=== PATIENT | female | born 1990 | race American Indian/Alaskan Native ===

== ENCOUNTER 2019-11-08 13:18 | Emergency (ER) | payer MEDICAID ==
[2019-11-08 13:25] VITALS: BP 117/75
--- NOTE | 2019-11-08 14:19 | Event Note ---
ED Screening Note ED Screening Note: Dara is currently 7 weeks . 6th . 3 live births 2 stillborn pregnancies Presents today with vomiting diarrhea and subsequent rectal bleeding This initial assessment/diagnostic orders/clinical plan/treatment(s) is/are subject to change based on patients health status, clinical progression and re- assessment by fellow clinical providers in the ED. Further treatment and workup at subsequent clinical providers discretion. Patient/guardian urged not to elope from the ED as their condition may be serious if not clinically assessed and managed. Initial orders include: labs US
[2019-11-08 14:50] LABS: Basophils # (Auto) 0.1 K/mm3 (0.0-0.1); Basophils % (Auto) 0.5 % (0.0-1.8); Hematocrit 34.7 % (30.3-42.9); Hemoglobin 11.4 gm/dl (10.1-14.3); Lymphocytes # (Auto) 1.6 K/mm3 (1.2-5.4); Lymphocytes % (Auto) 15.4 % (13.4-35.0); Mean Corpuscular HGB Conc 33 % (30-34); Mean Corpuscular Volume 76 fl (79-97); Monocytes # (Auto) 0.3 K/mm3 (0.0-0.8); Platelet Count 290 K/mm3 (140-440); Red Blood Count 4.58 M/mm3 (3.65-5.03); Red Cell Distribution Width 16.4 % (13.2-15.2)
[2019-11-08 15:08] LABS: BUN/Creatinine Ratio 15; Blood Urea Nitrogen 6 mg/dL (7-17); Calcium 9.6 mg/dL (8.4-10.2); Hemolysis Index 4
--- NOTE | 2019-11-08 16:45 | Ultrasound Report ---
ULTRASOUND OBSTETRIC INDICATION / CLINICAL INFORMATION: abdominal pain . Clinical Gestational Age (GA): 7 weeks 5 days TECHNIQUE: Transabdominal. Transvaginal COMPARISON: None available. FINDINGS: GESTATIONAL SAC: Well-defined oval shape and intrauterine in location. YOLK SAC: No significant abnormality. EMBRYO/FETUS: No significant abnormality. - [place]-Rump Length = 1.28 cm = 7 weeks, 4 day(s). - Heart Rate, beats per minute (if present) = 172 ADNEXA: No significant abnormality. Both ovaries appear unremarkable. FREE FLUID: None. ADDITIONAL FINDINGS: There is a large subchorionic hemorrhage noted to the left of the gestational sa c. Hemorrhage measures approximately 3.7 cm in greatest diameter. IMPRESSION: 1. Single, living intrauterine with estimated sonographic age of 7 weeks, 2 day(s). 2. Large subchorionic hemorrhage noted. Signer Name: Kacie Barahona MD Signed: 11/08/2019 4:40 PM Workstation Name: [id number]
--- NOTE | 2019-11-08 16:45 | Ultrasound Report ---
ULTRASOUND OBSTETRIC INDICATION / CLINICAL INFORMATION: abdominal pain . Clinical Gestational Age (GA): 7 weeks 5 days TECHNIQUE: Transabdominal. Transvaginal COMPARISON: None available. FINDINGS: GESTATIONAL SAC: Well-defined oval shape and intrauterine in location. YOLK SAC: No significant abnormality. EMBRYO/FETUS: No significant abnormality. - [place]-Rump Length = 1.28 cm = 7 weeks, 4 day(s). - Heart Rate, beats per minute (if present) = 172 ADNEXA: No significant abnormality. Both ovaries appear unremarkable. FREE FLUID: None. ADDITIONAL FINDINGS: There is a large subchorionic hemorrhage noted to the left of the gestational sa c. Hemorrhage measures approximately 3.7 cm in greatest diameter. IMPRESSION: 1. Single, living intrauterine with estimated sonographic age of 7 weeks, 2 day(s). 2. Large subchorionic hemorrhage noted. Signer Name: Kacie Barahona MD Signed: 11/08/2019 4:40 PM Workstation Name: [id number]
[2019-11-08] MEDS ORDERED: SODIUM CHLORIDE 0.9% 1000 ML 1,000 ML IV ONE (21:42)
[2019-11-08] MEDS ORDERED: ONDANSETRON 4 MG/2 ML INJ IV ONE (21:42)
[2019-11-08] MEDS ORDERED: ACETAMINOPHEN 325 MG TAB PO ONE (21:47)
--- NOTE | 2019-11-08 21:47 | Emergency Department Report ---
ED Abdominal Pain HPI - General Chief Complaint: GI Bleed Stated Complaint: 7WKS PREG/BLOOD IN STOOL/CRAMPS Time Seen by Provider: 11/08/19 21:29 Source: patient Mode of arrival: Ambulatory Limitations: No Limitations - History of Present Illness Initial Comments: 29-year-old -Swedish female that is 7 weeks presents to the emergency room for nausea vomiting abdominal pain and she reports she noted some blood in her stool. Patient is been compliant having these complaints for 2 days. Last menstrual period was September 15, 2019. Patient is 6 para 3 with 2 miscarriages. Patient has a past medical history of protein S defi ciency. Patient reports her pain is a 6 out of 10. Patient reports that she is not able to hold any food down. MD Complaint: abdominal pain Onset/Timin -: days(s) Location: suprapubic Radiation: none Migration to: no migration Severity scale (0 -10): 6 Quality: stabbing, aching Consistency: constant Improves With: nothing Worsens With: nothing Associated Symptoms: nausea, vomiting, hematochezia - Related Data LMP Date: 09/15/19 Allergies Allergy/AdvReac Type Severity Reaction Status Date / Time Penicillins Allergy Rash Verified 11/08/19 13:23 ED Review of Systems ROS: Stated complaint: 7WKS PREG/BLOOD IN STOOL/CRAMPS Other details as noted in HPI Comment: All other systems reviewed and negative ED Past Medical Hx - Social History Smoking Status: Never Smoker Substance Use Type: None ED Physical Exam - General Limitations: No Limitations General appearance: alert, in no apparent distress - Head Head exam: Present: atraumatic, normocephalic - Eye Eye exam: Present: normal appearance - ENT ENT exam: Present: mucous membranes moist - Respiratory Respiratory exam: Present: normal lung sounds bilaterally. Absent: respiratory distress - Cardiovascular Cardiovascular Exam: Present: regular rate, normal rhythm. Absent: systolic murmur, diastolic murmur, rubs, gallop - GI/Abdominal GI/Abdominal exam: Present: soft, tenderness ([place]-umbilicus). Absent: distended - Neurological Exam Neurological exam: Present: alert, oriented X3 - Psychiatric Psychiatric exam: Present: normal affect, normal mood - Skin Skin exam: Present: warm, dry, intact, normal color. Absent: rash ED Course Vital Signs 11/08/19 13:24 Temperature 98.2 F Pulse Rate 89 Respiratory 16 Rate Blood Pressure 117/75 O2 Sat by Pulse 99 Oximetry ED Medical Decision Making - Lab Data Result diagrams: 11/08/19 14:38 11/08/19 14:38 Laboratory Tests 11/08/19 11/08/19 11/08/19 14:38 14:38 14:38 WBC 10.4 RBC 4.58 Hgb 11.4 Hct 34.7 MCV 76 L MCH 25 L MCHC 33 RDW 16.4 H Plt Count 290 Lymph % (Auto) 15.4 [place] % (Auto) 3.0 Eos % (Auto) 0.0 Baso % (Auto) 0.5 Lymph # 1.6 [place] # 0.3 Eos # 0.0 Baso # 0.1 Seg Neutrophils % 81.1 H Seg Neutrophils # 8.4 H Sodium 135 L Potassium 4.2 Chloride 100.0 Carbon Dioxide 19 L Anion Gap 20 BUN 6 L Creatinine 0.4 L Estimated GFR > 60 BUN/Creatinine Ratio 15 Glucose 122 H Calcium 9.6 HCG, Qual Positive - Radiology Data Radiology results: report reviewed Patient: DERRICK GARCIA MR#: [id number] 2 : 1990 Acct:[id number] Age/Sex: 29 / F ADM Date: 11/08/19 Loc: ED Attending Dr: Ordering Physician: Jeimy Garivn MD Date of Service: 11/08/19 Procedure(s): US OB transvaginal Accession Number(s): [id number] cc: Jeimy Garvin MD ULTRASOUND OBSTETRIC INDICATION / CLINICAL INFORMATION: abdominal pain . Clinical Gestational Age (GA): 7 weeks 5 days TECHNIQUE: Transabdominal. Transvaginal COMPARISON: None available. FINDINGS: GESTATIONAL SAC: Well-defined oval shape and intrauterine in location. YOLK SAC: No significant abnormality. EMBRYO/FETUS: No significant abnormality. - [place]-Rump Length = 1.28 cm = 7 weeks, 4 day(s). - Heart Rate, beats per minute (if present) = 172 ADNEXA: No significant abnormality. Both ovaries appear unremarkable. FREE FLUID: None. ADDITIONAL FINDINGS: There is a large subchorionic hemorrhage noted to the left of the gestational sac. Hemorrhage measures approximately 3.7 cm in greatest diameter. IMPRESSION: 1. Single, living intrauterine with estimated sonographic age of 7 weeks, 2 day(s). 2. Large subchorionic hemorrhage noted. Signer Name: Kacie Barahona MD Signed: 11/08/2019 4:40 PM Workstation Name: [id number] Transcribed By: Dictated By: Kacie Barahona MD Electronically Authenticated By: Kacie Barahona MD Signed Date/Time: 11/08/19 1640 DD/ 1637 TD/TT: - Medical Decision Making 29-year-old -Swedish female that is 7 weeks presents to the emergency room for nausea vomiting abdominal pain and she reports she noted some blood in her stool. Patient is been compliant having these complaints for 2 days. Last menstrual period was September 15, 2019. Patient is 6 para 3 with 2 miscarriages. Patient has a past medical history of protein S deficiency. Patient reports her pain is a 6 out of 10. Patient reports that she is not able to hold any food down. Spoke to Dr. Herndon regarding patient abnormal ultrasound of a large subchronic hemorrhage. She recommends patient to be placed on miscarriage precaution. I also did discuss with patient she needs to follow-up with her [facility] within the next 3 days or return back to the emergency room sooner if she starts experiencing any severe heavy bleeding, severe abdominal pain, foul or pus coming from the vaginal area. Critical care attestation.: If time is entered above; I have spent that time in minutes in the direct care of this critically ill patient, excluding procedure time. ED Disposition Clinical Impression: Subchorionic hemorrhage in first trimester Is pt being admited?: No Does the pt Need Aspirin: No Condition: Stable Instructions: Threatened Miscarriage (ED) Additional Instructions: You have foul-smelling drainage or pus coming from your vagina. You have heavy vaginal bleeding and soak 1 pad or more in an hour. You have severe abdominal pain. You feel like your heart is beating faster than normal. You feel extremely weak or dizzy Return back to the emergency room to be evaluated if you have any of the symptoms. If you have no symptoms I recommend for you to follow-up with your [facility] in the next 3 days. Referrals: NILA BONDS MD [Primary Care Provider] - 3-5 Days Forms: Accompanied Note
[2019-11-08] MEDS ORDERED: ACETAMINOPHEN 325 MG TAB ONE (21:49)
== END 2019-11-09 | disposition home or self-care (01) ==
LOC: ED 13:18
DX: O20.8 Other hemorrhage in early pregnancy (principal); O26.891 Other specified pregnancy related conditions, first trimester; O21.8 Other vomiting complicating pregnancy; R10.9 Unspecified abdominal pain; R25.2 Cramp and spasm; K92.1 Melena; Z3A.01 Less than 8 weeks gestation of pregnancy; Z88.8 Allergy status to other drugs, medicaments and biological substances
CPT/HCPCS: 36415; 76801; 76817; 80048; 84703; 85025; 96361; 96374; 99284; J2405; J7030